=== PATIENT | male | born 1945 | race Caucasian/White ===

== ENCOUNTER → 2018-05-20 | Outpatient (CLI) | payer MEDICARE ==
[~2018-05-20] MED LIST: ACET500T33 PO; AMIO200T4 PO; CLOP75TA57 PO; SIMV20TA3 PO
--- NOTE | 2018-05-20 09:54 | CARD ---
MR#: [id number] Date of Study: 05/20/2018 Ordering Physician: PERLA FARLEY, Referring Physician: PERLA FARLEY, Tech: Dee Xiao RDCS APPROVED REPORT EXAM: Two-dimensional and M-mode echocardiogram with Doppler and color Doppler. Other Information Quality : AverageHR: 55bpm Rhythm : Bradycardia INDICATION Arrhythmia 2D DIMENSIONS RVDd2.6 (2.9-3.5cm)Left Atrium(2D)4.3 (1.6-4.0cm) IVSd0.9 (0.7-1.1cm)Aortic Root(2D)3.2 (2.0-3.7cm) LVDd5.6 (3.9-5.9cm)LVOT Diameter2.2 (1.8-2.4cm) PWd1.1 (0.7-1.1cm)LVDs4.0 (2.5-4.0cm) FS (%) 28.6 %SV82.5 ml LVEF(%)54.5 (>50%) M-Mode DIMENSIONS Left Atrium(MM)5.17 (2.5-4.0cm)Aortic Root3.67 (2.2-3.7cm) Aortic Valve AoV Peak Channing.164.6cm/sAoV VTI41.8cm AO Peak GR.10.8mmHgLVOT Peak Channing.91.8cm/s LVOT VTI 25.54cmAO Mean GR.6mmHg MAX (VMAX)2.08qp3ODJ (VTI)2.37cm2 Mitral Valve MV E Bxiejram34.8cm/sMV E Peak Gr.3mmHg MV DECEL [id number] A Edwcdqrw87.8cm/s MV E Mean Gr.1mmHgE/A Ratio1.0 MV A Wbwalssx539an Pulmonary Valve PV Peak Hsmuobix014.8cm/sPV Peak Grad.8mmHg Tricuspid Valve TR P. Vzdhjalj549nz/sRAP JQNBNCRY1ydUv TR Peak Gr.65jlQmAZWR03rpTs Pulmonary Vein S1 Wlhagcqx62.9cm/sD2 Fmwouzhc70.2cm/s LEFT VENTRICLE The left ventricle is normal size. There is normal left ventricular wall thickness. The left ventricu lar systolic function is normal and the ejection fraction is within normal range. The Ejection Fracti on is 55-60%. There is normal LV segmental wall motion. The left ventricular diastolic function and f illing is normal for age. RIGHT VENTRICLE The right ventricle is normal size. There is normal right ventricular wall thickness. The right ventr icular systolic function is normal. ATRIA The left atrium is moderately dilated. The right atrium is mildly dilated. The interatrial septum is intact with no evidence for an atrial septal defect or patent foramen ovale as noted on 2-D or Dopple r imaging. AORTIC VALVE The aortic valve is thickened but opens well. Doppler and Color Flow revealed no significant aortic r egurgitation. There is no significant aortic valvular stenosis. MITRAL VALVE The mitral valve is thickened but opens well. There is no evidence of mitral valve prolapse. There is no mitral valve stenosis. Doppler and Color-flow revealed trace mitral regurgitation. TRICUSPID VALVE The tricuspid valve is normal in structure and function. Doppler and Color Flow revealed trace tricus pid regurgitation. The PA pressure was estimated at 35 mmHg. There is no tricuspid valve prolapse or vegetation. There is no tricuspid valve stenosis. PULMONIC VALVE Doppler and Color Flow revealed no pulmonic valvular regurgitation. There is no pulmonic valvular rona nosis. GREAT VESSELS The aortic root is normal in size. The ascending aorta is normal in size. The IVC is normal in size a nd collapses >50% with inspiration. PERICARDIAL EFFUSION There is no evidence of significant pericardial effusion. Critical Notification Critical Value: No <Conclusion> The left ventricular systolic function is normal and the ejection fraction is within normal range. Th e Ejection Fraction is 55-60%. There is normal LV segmental wall motion. Signed by : Feliberto Murguia, Electronically Approved : 05/20/2018 09:52:38
== END | disposition home or self-care (01) ==
LOC: ECHO 07:42
PROVIDERS: ATTEND Internal Medicine Cardiovascular Disease
DX: I48.0 Paroxysmal atrial fibrillation (principal); I49.8 Other specified cardiac arrhythmias
CPT/HCPCS: 93306

== ENCOUNTER → 2019-06-16 | Outpatient (CLI) | payer MEDICARE ==
--- NOTE | 2019-06-16 14:28 | CARD ---
MR#: [id number] Date of Study: 06/16/2019 Ordering Physician: PERLA FARLEY, Referring Physician: PERLA FARLEY Tech: Dee Xiao RDCS APPROVED REPORT EXAM: Two-dimensional and M-mode echocardiogram with Doppler and color Doppler. Other Information Quality : Technically LimitedHR: 55bpm Rhythm : BradycardiaTechnically limited study due to body habitus. INDICATION Atrial Fibrillation 2D DIMENSIONS RVDd2.9 (2.9-3.5cm)Left Atrium(2D)4.2 (1.6-4.0cm) IVSd1.3 (0.7-1.1cm)Aortic Root(2D)3.3 (2.0-3.7cm) LVDd5.2 (3.9-5.9cm)LVOT Diameter2.2 (1.8-2.4cm) PWd1.3 (0.7-1.1cm)LVDs3.4 (2.5-4.0cm) FS (%) 35.2 %SV84.2 ml LVEF(%)60.0 (>50%) M-Mode DIMENSIONS Left Atrium(MM)5.27 (2.5-4.0cm)Aortic Root3.83 (2.2-3.7cm) Aortic Valve AoV Peak Channing.143.5cm/sAoV VTI29.2cm AO Peak GR.8.2mmHgLVOT Peak Channing.123.4cm/s LVOT VTI 26.41cmAO Mean GR.4mmHg MAX (VMAX)3.48rv5GHN (VTI)3.43cm2 Mitral Valve MV E Zuxdvjvp076.1cm/sMV DECEL MFBN273ck MV A Srdhvrln76.1cm/sE/A Ratio1.4 Pulmonary Valve PV Peak Ngdqkaan387.7cm/sPV Peak Grad.6mmHg Tricuspid Valve TR P. Ccmgajku575oo/sRAP GZEHGRTX6pxJv TR Peak Gr.68fcFdTZRU49cpFs LEFT VENTRICLE The left ventricle is normal size. There is mild concentric left ventricular hypertrophy. The left ve ntricular systolic function is normal and the ejection fraction is within normal range. The Ejection Fraction is 55-60%. There is grossly normal LV segmental wall motion. Limited evaluation due to subop timal images Transmitral Doppler flow pattern is Grade II-pseudonormal filling dynamics. RIGHT VENTRICLE The right ventricle is normal size. There is normal right ventricular wall thickness. The right ventr icular systolic function is normal. ATRIA The left atrium is mildly dilated. The right atrium is mildly dilated. The interatrial septum is inta ct with no evidence for an atrial septal defect or patent foramen ovale as noted on 2-D or Doppler im aging. AORTIC VALVE The aortic valve is normal in structure and function. The aortic valve is trileaflet. Doppler and Col or Flow revealed no significant aortic regurgitation. There is no significant aortic valvular stenosi s. There is no aortic valvular vegetation. MITRAL VALVE The mitral valve is normal in structure and function. There is no evidence of mitral valve prolapse. There is no mitral valve stenosis. Doppler and Color-flow revealed trace mitral regurgitation. TRICUSPID VALVE The tricuspid valve is normal in structure and function. Doppler and Color Flow revealed trace tricus pid regurgitation. There is mild-moderate pulmonary hypertension. The PA pressure was estimated at 42 mmHg. There is no tricuspid valve prolapse or vegetation. There is no tricuspid valve stenosis. PULMONIC VALVE The pulmonic valve is not well visualized. GREAT VESSELS The aortic root is normal in size. The ascending aorta is normal in size. The IVC is normal in size a nd collapses >50% with inspiration. PERICARDIAL EFFUSION There is no evidence of significant pericardial effusion. Critical Notification Critical Value: No <Conclusion> The left ventricular systolic function is normal and the ejection fraction is within normal range. Th e Ejection Fraction is 55-60%. There is grossly normal LV segmental wall motion. Limited evaluation due to suboptimal images Doppler and Color Flow revealed trace tricuspid regurgitation. There is mild-moderate pulmonary hyper tension. The PA pressure was estimated at 42 mmHg. Signed by : Feliberto Murguia, Electronically Approved : 06/16/2019 14:27:45
== END | disposition home or self-care (01) ==
LOC: ECHO 13:42
PROVIDERS: ATTEND Internal Medicine Cardiovascular Disease
DX: I51.7 Cardiomegaly (principal); I27.20 Pulmonary hypertension, unspecified; I48.0 Paroxysmal atrial fibrillation
CPT/HCPCS: 93306

== ENCOUNTER 2021-10-17 10:22 | Emergency (ER) | payer MEDICARE ==
[~2021-10-17] VITALS: Ht 165.1 cm; Wt 117.0 kg
[~2021-10-17 10:22] MED LIST changes: -AMIO200T4 PO; +AMIO200T54 PO; +SIMV20TA18 PO; -SIMV20TA3 PO
[2021-10-17 10:32] VITALS: BP 168/72
[2021-10-17] MEDS ORDERED: DIPHTH,PERTUSS(ACELL),TET TOX 0.5 ML DISP.SYRIN. VAX IM ONE (10:45)
[2021-10-17] MEDS ORDERED: NEOMY/BACITR/POLYMYXIN OINT PACKET. TP ONE (10:45)
--- NOTE | 2021-10-17 10:46 | PHYS DOC ---
Past History Past Medical History: A-Fib, CAD Past Surgical History: Appendectomy, Knee Replacement, Other Smoking: Quit Greater Than 1 Year Alcohol Use: Rarely Drug Use: None General Adult EDM: Chief Complaint: ABRASION HPI: HPI: Patient is a 76-year-old male who presents to the emergency department for an ab rasion to his left forearm. Patient reports that last night he was brushing his teeth and he tripped on the bathroom drug and hit his left forearm on the door jam. He denies hitting his head, loss of consciousness, blood thinner use, extremity pain. Patient is unsure of his last tetanus shot. Review of Systems: Review of Systems: HENT: See HPI Musculoskeletal: See HPI Integument: See HPI Neurologic: See HPI Allergies: Allergies: Allergies Coded Allergies Type Severity Reaction Last Updated Verified diltiazem Allergy Intermediate Hives 03/10/14 Yes Physical Exam: PE: Constitutional: Well developed, well nourished, no acute distress, non-toxic ap pearance. [] HENT: Normocephalic, atraumatic, bilateral external ears normal, oropharynx moist, no oral exudates, nose normal. [] Eyes: PERRL, EOMI, conjunctiva normal, no discharge. [] Neck: Normal range of motion, no bony spinal tenderness, no step offs or deformities, supple, no stridor. [] Cardiovascular:heart rate bradycardic, normal peripheral perfusion Lungs & Thorax: normal work of breathing Abdomen: Bowel sounds normal, soft, no tenderness, no masses, no pulsatile masses. [] Skin: Warm, dry, 2 skin tears noted to left forearm approximately 2cm and 4cm long Back: No bony spinal tenderness, normal range of motion Extremities: No tenderness, no cyanosis, no clubbing, ROM intact, no edema. [] LUE: no pain with palpation of wrist/elbow/shoulder joint, no crepitis, rom intact, neuro intact, no obvious deformity. Neurologic: Alert and oriented X 3, normal motor function, normal sensory function, no focal deficits noted. [] Psychologic: Affect normal, judgement normal, mood normal. [] Current Patient Data: Vital Signs: Vital Signs Date Time Temp Pulse Resp B/P (MAP) Pulse Ox O2 Delivery O2 Flow Rate FiO2 10/17/21 10:32 98.2 50 18 168/72 (104) 99 Room Air EKG: EKG: [] Radiology/Procedures: Radiology/Procedures: []REASON: hit forearm on door jam has abrasion PROCEDURE: FOREARM LEFT Exam: XR FOREARM_LEFT 2 VIEWS History: Trauma. Pain and abrasion Comparison: None. Findings: Decreased osseous mineralization. No fracture or dislocation. No elevated periosteal reaction. No focal soft tissue swelling. Impression: 1. No acute osseous abnormality of the left forearm. Electronically signed by: Dangelo Jeff MD (10/17/2021 10:59 AM) [id number] DICTATED AND SIGNED BY: DANGELO JEFF MD DATE: 10/17/21 1056 CC: BETHANIE DRAKE APRN; PCP,NO ~MTH0 0 Heart Score: C/O Chest Pain: N/A Risk Factors: Risk Factors: DM, Current or recent (<one month) smoker, HTN, HLP, family history of CAD, obesity. Risk Scores: Score 0 - 3: 2.5% MACE over next 6 weeks - Discharge Home Score 4 - 6: 20.3% MACE over next 6 weeks - Admit for Clinical Observation Score 7 - 10: 72.7% MACE over next 6 weeks - Early Invasive Strategies Course & Med Decision Making: Course & Med Decision Making Pertinent Labs and Imaging studies reviewed. (See chart for details) Patient presents to the emergency department for skin tear to his left forearm after hitting it on a door jam last night. Patient is unsure of his last tetanus shot this was updated in the emergency department today. An x-ray was performed to rule out sure which showed no acute findings. Wound was cleansed the emergency department, triple antibiotic ointment was applied and a nonadh erent dressing was placed. Patient educated on wound care and was given supplies to change his dressing at home. Patient's blood pressure was elevated in the emergency department at 210/101. Patient reports that he does not have a history of hypertension and does not take any medications at home for this. 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 Patient is asymptomatic with this blood pressure and has no complaints of chest pain or shortness of breath. Patient was advised to follow-up with his primary care provider tomorrow regarding his elevated blood pressure readings. I advised him to purchase a blood pressure cuff and monitor his blood pressure at home twice a day and keep a log of it. I discussed with patient all findings and diagnostic testing as well as the need to follow-up with PCP for further evaluation and treatment or return to the ER if any new or worsening symptoms. Strict return precautions were also discussed at length. Patient voiced understanding and agreement with the plan. Patient is hemodynamically stable at the time of disposition. Dragon Disclaimer: Dragon Disclaimer: This electronic medical record was generated, in whole or in part, using a voice recognition dictation system. Departure Departure: Impression: Primary Impression: Skin tear Disposition: HOME / SELF CARE / HOMELESS Condition: GOOD Referrals: PCP,NO (PCP) MARIANELA NOE MD, VENKAT R MD Patient Instructions: Hypertension, Skin Tear Care Additional Instructions: You were seen in the emergency department today for a skin tear to your left forearm. We performed an x-ray which showed no acute fractures. Please keep your skin tear clean and dry. You can wash this with warm water and mild soap. Please apply Polysporin or triple antibiotic ointment and apply a nonadherent dressing. Please change the dressing daily. Your tetanus was updated in the emergency department today. Your blood pressure was elevated in the emergency department today. I would advise you to purchase a blood pressure cuff and monitor your blood pressure twice a day and keep a log of it. Please follow-up with your primary care provider/Dr. Faith tomorrow regarding your elevated blood pressure readings as you may need to be started on antihypertensive medications. Monitor your skin tear for any signs of infection which include redness, warmth, swelling or drainage. If you develop any of these symptoms or increased pain, decreased range of motion or decreased sensation in your arm please return to the emergency department immediately. Also if you develop chest pain, shortness of breath, blurred vision, dizziness please return to the emergency department. BETHANIE DRAKE APRN Oct 17, 2021 10:46
--- NOTE | 2021-10-17 11:01 | RAD ---
Exam: XR FOREARM_LEFT 2 VIEWS History: Trauma. Pain and abrasion Comparison: None. Findings: Decreased osseous mineralization. No fracture or dislocation. No elevated periosteal reaction. No foc al soft tissue swelling. Impression: 1. No acute osseous abnormality of the left forearm. Electronically signed by: Dangelo Martinez MD (10/17/2021 10:59 AM) [id number]
== END 2021-10-17 11:20 | disposition home or self-care (01) ==
LOC: ER 10:22
DX: S51.812A Laceration without foreign body of left forearm, initial encounter (principal); I48.91 Unspecified atrial fibrillation; I25.10 Atherosclerotic heart disease of native coronary artery without angina pectoris; Z87.891 Personal history of nicotine dependence; Z88.8 Allergy status to other drugs, medicaments and biological substances; W01.0XXA Fall on same level from slipping, tripping and stumbling without subsequent striking against object, initial encounter; Y93.89 Activity, other specified; Y92.89 Other specified places as the place of occurrence of the external cause; Y99.8 Other external cause status
CPT/HCPCS: 73090; 90471; 90715; 99283